=== PATIENT | male | born 1940 | race Caucasian/White ===

== ENCOUNTER 2019-06-01 04:30 | Observation (INO) ==
[2019-06-01] MEDS ORDERED: MORPHINE 4 MG/1 ML VIAL IV STA (04:42)
[2019-06-01] MEDS ORDERED: ALUM/MAG/SIMETH/LIDO VISC 1:1 30 ML BOTTLE PO STA (04:42)
[2019-06-01] MEDS ORDERED: ONDANSETRON 4 MG/2 ML VIAL IV STA (04:42)
[2019-06-01] MEDS ORDERED: NITROGLYCERIN 2% OINT 1 INCH/GM PACK TOP STA (04:42)
[2019-06-01 05:02] LABS: Basophils % 0.3 % (0.0-0.8); Eosinophils # 0.2 10*3/uL (0.0-0.87); Eosinophils % 2.5 % (0.00-10.9); Hematocrit 32.7 VOL% (42.0-52.0); Hemoglobin 10.9 GM/DL (14.0-18.0); Immature Granulocytes % 0.3 %; Immature Granulocytes Absolute 0.02 #; Lymphocytes # 1.9 10*3/uL (1.4-4.0); Lymphocytes % 29.2 % (21.2-54.2); Mean Corpuscular HGB Conc 33.3 GM/DL (32-36); Mean Corpuscular Volume 99.4 FL (87-102); Mean Platelet Volume 10.3 FL (9.6-12.0); Monocytes % 7.1 % (1.7-12.7); Neutrophils % 60.6 % (38.7-73.9); Platelet Count 193 T/CUMM (130-400); Red Blood Count 3.29 MC/CUMM (3.8-5.5); Red Cell Distribution Width 12.4 % (9.3-17.3); White Blood Count 6.3 T/CUMM (4-12)
[2019-06-01 05:13] LABS: PT Patient Result 10.5 SECS (9.6-12.2)
[2019-06-01 05:33] LABS: Albumin 3.8 G/DL (3.4-5.0); Bilirubin,Total 0.4 MG/DL (0.2-1.0); Calcium 8.5 MG/DL (8.5-10.1); Osmolality,Calculated 274.7 MOS/KG (273-304); Total Protein 7.2 G/DL (6.4-8.3)
[2019-06-01] MEDS ORDERED: MAGNESIUM SULF RIDER 2 GM in PREMIX 1 EACH IV STA (05:39)
[2019-06-01] MEDS ORDERED: ACETAMINOPHEN 325 MG TABLET PO PRN (05:43)
[2019-06-01] MEDS ORDERED: ONDANSETRON 4 MG/2 ML VIAL IV PRN (05:43)
[2019-06-01] MEDS ORDERED: MORPHINE 4 MG/1 ML VIAL IV PRN (05:43)
[2019-06-01 06:14] LABS: Risk Ratio 3.43; VLDL CHOLESTEROL 29.6 MG/DL
[2019-06-01] MEDS: NITROGLYCERIN 2% OINT 1 INCH/GM PACK TOP SCH ×2 (07:06→13:48)
[2019-06-01] MEDS ORDERED: NITROGLYCERIN SL 0.4 MG TABLET SL PRN (08:22)
[2019-06-01] MEDS ORDERED: MULTIVITAMIN (CENTRUM) TABLET PO SCH (09:00)
[2019-06-01] MEDS ORDERED: Turmeric Root Extract 500 MG PO SCH (09:00)
[2019-06-01] MEDS ORDERED: ATENOLOL 50 MG TABLET PO SCH (09:00)
[2019-06-01] MEDS ORDERED: CHOLECALCIFEROL 1,000 UNIT TABLET PO SCH (09:00)
[2019-06-01] MEDS ORDERED: VITAMIN E 1000 UNIT CAPSULE PO SCH (09:00)
[2019-06-01] MEDS ORDERED: ASPIRIN EC 81 MG TABLET PO SCH (09:00)
[2019-06-01] MEDS ORDERED: ASCORBIC ACID 500 MG TABLET PO SCH (09:00)
[2019-06-01] MEDS ORDERED: ENOXAPARIN 40 MG/0.4 ML SYRINGE SUBCUT SCH (09:00)
[2019-06-01] MEDS ORDERED: PANTOPRAZOLE 40 MG TABLET PO SCH (09:00)
[2019-06-01] MEDS ORDERED: FUROSEMIDE 20 MG TABLET PO SCH (09:00)
[2019-06-01] MEDS ORDERED: Garlic 1,000 MG PO SCH (09:00)
[2019-06-01] MEDS ORDERED: OMEGA 3 ACID ETHYL ESTERS 1 GM CAPSULE PO SCH (09:00)
[2019-06-01] MEDS ORDERED: Cinnamon Bark [Cinnamon] 500 MG PO SCH (09:00)
[2019-06-01] MEDS ORDERED: FERROUS SULFATE 300 MG/5 ML UDCUP PO SCH (09:00)
[2019-06-01] MEDS ORDERED: TOLTERODINE LA 4 MG CAPSULE PO SCH (09:00)
[2019-06-01] MEDS ORDERED: REGADENOSON 0.4 MG/5 ML SYRINGE IV ONE (12:25)
[2019-06-01 14:40] VITALS: BP 150/61
[2019-06-01] MEDS ORDERED: FAMOTIDINE 20 MG TABLET PO SCH (21:00)
[2019-06-01] MEDS ORDERED: SIMVASTATIN 20 MG TABLET PO SCH (21:00)
== END 2019-06-01 15:28 | disposition home or self-care (01) ==
LOC: EDUNIT# → EDBD → N.ED 04:30 → N.EDINP 04:30 → N.TELES 06:03
PROVIDERS: ADMIT Emergency Medicine; ATTEND Emergency Medicine